=== PATIENT | male | born 1980 | race Caucasian/White ===

== ENCOUNTER 2023-12-12 06:45 | Outpatient (RCR) | payer BC, SELFPAY | END 2023-12-12 23:59 | disposition home or self-care (01) | LOC: CRHB 06:45 | PROVIDERS: ATTENDING PHYSICIAN Internal Medicine Cardiovascular Disease; FAMILY PHYSICIAN Family Medicine | DX: I25.10 Atherosclerotic heart disease of native coronary artery without angina pectoris (principal); Z95.5 Presence of coronary angioplasty implant and graft; I25.2 Old myocardial infarction | CPT/HCPCS: 93797; 93798 ==

== ENCOUNTER 2024-01-09 07:08 | Outpatient (RCR) | payer BC, SELFPAY | END 2024-01-09 23:59 | disposition home or self-care (01) | LOC: CRHB 07:08 | PROVIDERS: ATTENDING PHYSICIAN Internal Medicine Cardiovascular Disease; FAMILY PHYSICIAN Family Medicine | DX: I25.10 Atherosclerotic heart disease of native coronary artery without angina pectoris (principal); Z95.5 Presence of coronary angioplasty implant and graft; I25.2 Old myocardial infarction | CPT/HCPCS: 93798 ==

== ENCOUNTER 2024-01-15 07:01 | Outpatient (RCR) | payer BC, SELFPAY | END 2024-01-15 23:59 | disposition home or self-care (01) | LOC: CRHB 07:01 | PROVIDERS: ATTENDING PHYSICIAN Internal Medicine Cardiovascular Disease; FAMILY PHYSICIAN Family Medicine | DX: Z95.5 Presence of coronary angioplasty implant and graft (principal) | CPT/HCPCS: 93797; 93798 ==

== ENCOUNTER 2024-03-28 14:47 | Emergency (ER) | payer BC, SELFPAY ==
[2024-03-28 14:52] VITALS: BP 137/80
[2024-03-28 15:19] LABS: % Basophils 0.5 % (0-2); % Eosinophils 2.5 % (0-6); % Immature Granulocytes 0.3 % (0-0.5); % Lymphocytes 21.1 % (20.5-51.1); % Monocytes 5.3 % (1.7-9.3); % Neutrophils 70.3 % (42.2-75.2); Absolute Eosinophils 0.2 10^3/uL (0-0.7); Absolute Lymphocytes 1.7 10^3/uL (1.2-3.4); Absolute Monocytes 0.4 10^3/uL (0.1-0.6); Absolute Neutrophils 5.6 10^3/uL (1.4-6.5); Hematocrit 42.3 % (39.0-52.0); Hemoglobin 15.2 g/dL (13.0-18.0); Mean Corp Hgb Conc. 35.9 g/dL (33.0-37.0); Mean Corpuscular Hgb 31.8 pg (27.0-31.0); Mean Corpuscular Volume 88.5 fL (80.0-94.0); Mean Platelet Volume 10.3 fL (7.4-10.4); Nucleated Red Blood Cells % 0 % (-); Platelet Count 212 10^3/uL (130-400); Red Blood Cell Count 4.78 10^6/uL (4.70-6.10); Red Cell Dist. Width 12.6 % (11.5-14.5)
[2024-03-28 15:28] LABS: ALT (SGPT) 33 U/L (0-50); AST (SGOT) 35 U/L (17-59); Albumin 4.8 g/dl (3.5-5.0); Alkaline Phosphatase 63 U/L (38-126); Blood Urea Nitrogen 16 mg/dl (9-20); Calcium 10.1 mg/dl (8.4-10.2); Carbon Dioxide 22 mmol/L (22-30); Chloride 104 mmol/L (98-107); Glucose 159 mg/dl (70-99); Potassium 3.8 mmol/L (3.5-5.1); Sodium 140 mmol/L (135-145); Total Bilirubin 1.1 mg/dl (0.2-1.3); Total Protein 7.8 g/dl (6.3-8.2); eGFR > 60.00
[2024-03-28 15:39] LABS: Troponin I < 0.012 ng/ml
--- NOTE | 2024-03-28 16:15 | ED.GENMED ---
History of Present Illness
General
Chief Complaint: Anxiety
Source: patient
Exam Limitations: none
Time Seen by Provider: 03/28/24 16:15
Nursing documentation reviewed up to this point in time: agreed with
Travel History
Have you had any contact with someone who has COVID-19?: No
Do you have any symptoms of coronavirus? Fever > 100 degrees, chills, cough, shortness of breath, sore throat, loss of taste or smell, muscle aches, or headache?: No
History of Present Illness
History of Present Illness:
44-year-old male with history of HTN, HLD, ME in 09/2023, panic attacks states between 2 and 230 this afternoon while having lunch with his he developed a warm sensation in his neck and back and started to feel panicky. He states he had to
similar episodes previously this week. It was not associated with chest pain or shortness of breath. Denies abdominal pain, N/V/D/C.
He states he has been under a lot of stress at work, he feels he overworked himself earlier today weed whacking his lawn which he hasn't done in years.
He states this does not feel like when he had his heart attack and does feel like previous panic attacks.
Past History
Past History
ED Past Medical History: Other (Lumbar disc disease)
ED Past Surgical History: Urological (vasectomy)
Social History
Tobacco: Non-smoker
Alcohol: Occasional (rare)
Personal:
Living: with family
Employment: Employed
Family History
Family History: Other (Noncontributory)
Review of Systems
Review of Systems
Allergies reviewed?: Yes
All Other Systems: ROS reviewed and negative except as documented in HPI and ROS
Constitutional: Denies fever or fatigue
EENT: Denies sore throat
Respiratory: Denies trouble breathing
Cardiac: Denies chest pain, diaphoresis or palpitations
ABD/GI: Denies abdominal pain, nausea or vomiting
: Denies dysuria or difficulty voiding
Musculoskeletal: Reports no symptoms
Skin: Reports no symptoms
Neurological: Reports no symptoms
Psychiatric: Reports anxiety
Phy Exam
Physical Exam
Physical Exam:
GENERAL: No acute distress. A&Ox3.
CONSTITUTIONAL: Afebrile.
EYES: Clear, conjunctivae normal
ENMT: moist mucus membranes
RESPIRATORY: Regular respirations, nonlabored, lungs clear.
CARDIOVASCULAR: Regular rate and rhythm, no murmurs, no rubs.
MUSCULOSKELETAL: Moves with ease. Well perfused.
SKIN: Warm, dry, pink
PSYCH: Normal mood and affect. Well kept, interactive and appropriate
NEUROLOGIC: Awake, alert and oriented. No focal neurological deficits
Course
Orders/Labs/Results
Orders:
Orders
03/28/24 14:48
ECG [Electrocardiogram (*1)] Urgent
Reason for Study: Chest Pain
EKG- Treatment ONCE
03/28/24 14:59
Complete Blood Count/With Diff Urgent
Comprehensive Metabolic Panel Urgent
Troponin I Urgent
Abnormal Lab Results
03/28/24
14:59
MCH 31.8 H pg
(27.0-31.0)
Glucose 159 H mg/dl
(70-99)
03/28/24 14:59
03/28/24 14:59
Vital Signs
Initial and Last Documented VS:
Initial Vital Signs
Temp Pulse Resp BP Pulse Ox
98.1 F 95 16 137/80 99
03/28/24 14:52 03/28/24 14:52 03/28/24 14:52 03/28/24 14:52 03/28/24 14:52
Last Documented Vital Signs
Temp Pulse Resp BP Pulse Ox
98.1 F 94 18 151/87 99
03/28/24 14:52 03/28/24 16:55 03/28/24 16:55 03/28/24 16:55 03/28/24 16:55
MDM/Problems Addressed
Differential Diagnosis Includes:
anxiety, panic attact
MDM/Problems Addressed:
44-year-old male with history of HTN, HLD, ME in 09/2023, panic attacks states between 2 and 230 this afternoon while having lunch with his he developed a warm sensation in his neck and back and started to feel panicky. He states he had to
similar episodes previously this week. It was not associated with chest pain or shortness of breath. Denies abdominal pain, N/V/D/C.
He states he has been under a lot of stress at work, he feels he overworked himself earlier today weed whacking his lawn which he hasn't done in years.
He states this does not feel like when he had his heart attack and does feel like previous panic attacks.
EKG: NSR
4:30 PM:
CBC normal
CMP normal
Troponin normal
Explained to patient that for completeness sake a second troponin should be drawn in 1.5 hours
He did take a Xanax about 2 hours ago and said initially he felt better but since coming back and did this exam room #34 starting to feel anxious again with a 'warm sensation' in the back of his neck and across his shoulders.
4:40 PM
Patient's nurse approaches me saying the patient does not want to stay for second troponin, he feels sure this is not a heart attack and thinks it is just a panic attack and is asking to be discharged.
He has Xanax he can take if needed (left over from 10/04 when he had his ME, he hardly used it).
He will discuss with his PCP different anti anxiety/depression meds
Discussed relaxation techniques.
*EKG
EKG Intrepretation Date: 03/28/24
Interpretation: normal
Rate: normal
Rhythm: sinus
[place]: left axis deviation
Interval: normal interval
QRS Pattern: normal QRS
Ischemia: no ischemia
*Critical Care Note
Total Time (30-74mins, 75-104mins- exclusive of procedures): Not Applicable
ED Attending Note
-
Portions of this chart may have been created with voice recognition software.� Occasional wrong word or��sound alike� substitutions may have occurred due to the inherent limitations of voice recognition software.
Discharge Plan
Departure
Patient Disposition: Home (Routine Discharge)
Date of Disposition: 03/28/24
Time of Disposition: 16:42
Patient with high blood pressure during this ER visit?: No
Condition: Good
Discharge Problem:
Panic attack as reaction to stress
Instructions: Anxiety, Adult (DC), Panic Attack ED
Prescriptions:
No Action
Brilinta 90 mg Tablet
90 mg PO BID Qty: 60 11RF
aspirin [Children's Aspirin] 81 mg Tablet,Chewable
81 mg PO DAILY Qty: 90 0RF
lisinopril 5 mg Tablet
5 mg PO DAILY Qty: 90 0RF
rosuvastatin 40 mg Tablet
40 mg PO QPM Qty: 90 1RF
metoprolol tartrate 25 mg Tablet
25 mg PO BID@0600,1800 Qty: 60 3RF
Referrals:
Diaz Melgoza MD [Family Provider] - Next open appointment
Activity Restrictions/Additional Instructions:
As we discussed, your blood work is normal. Your cardiac enzyme troponin is also normal.
Your EKG shows nothing worrisome.
Take it easy over the next day or 2.
If your anxiety or panic feelings persist or increase in regularity, go back to your doctor to discuss possibly another antianxiety/antidepressant medication.
Interventions
Interventions:
*Risk Screen - Suicide Last Done: 03/28/24 16:33
*General Assessment Last Done: 03/28/24 16:33
*Neglect/Abuse Screening Last Done: 03/28/24 16:33
ED- Fall Risk Assessment Last Done: 03/28/24 16:37
*Nursing Disposition Last Done: 03/28/24 16:57
ED-Psychological Assessment Last Done: 03/28/24 16:36
Discharge Date and Time
Discharge Date/Time: 03/28/24 16:57
Print Language: SLOVENIAN
[2024-03-28 16:55] VITALS: BP 151/87
== END 2024-03-28 16:57 | disposition home or self-care (01) ==
LOC: EMR 14:47
PROVIDERS: Emergency Medicine; EMERGENCY PHYSICIAN Student in an Organized Health Care Education/Training Program; FAMILY PHYSICIAN Family Medicine
DX: F43.0 Acute stress reaction (principal); F41.9 Anxiety disorder, unspecified; I10 Essential (primary) hypertension; E78.00 Pure hypercholesterolemia, unspecified; I25.2 Old myocardial infarction
CPT/HCPCS: 99283; 80053; 84484; 85025; 93005

== ENCOUNTER → 2024-10-03 09:16 | Outpatient (REF) | payer BC, SELFPAY | LOC: HWRCS 09:16 | PROVIDERS: ATTENDING PHYSICIAN Internal Medicine Cardiovascular Disease; FAMILY PHYSICIAN Family Medicine | DX: I25.10 Atherosclerotic heart disease of native coronary artery without angina pectoris (principal); E78.00 Pure hypercholesterolemia, unspecified | CPT/HCPCS: 93306 ==